=== PATIENT | male | born 1995 ===

== ENCOUNTER 2023-12-26 15:38 | Outpatient (RCR) | payer OTHER, SELFPAY ==
--- NOTE | 2023-12-26 16:00 | PT.OPPOC ---
Physical, Occupational & Speech Therapy At [facility] Current Diagnoses Dizziness and giddiness (12/26/23) Visit Care Team Role Provider Type Ying Moody DO Attending Provider Non-Staff Primary Care Provider Referring Provider Specialty: Medical Address: [address] [place] [address], [phone] Fax: Email: Plan Of Care PT-OP-T Assessment and Plan Start: 12/26/23 16:40 Freq: Status: Active Protocol: Document 12/26/23 16:00 DCW (Rec: 12/27/23 08:51 DCW [id number]) Physical Therapy Assessment Rehab Potential Rehabilitation Potential Excellent Evaluation Complexity Number of Personal Factors/Comorbidities 0 Number of Body Systems Impaired 1-2 Clinical Presentation at Evaluation Stable Impairments Impairments Balance,Functional Activities, Functional Mobility,Vestibular Goals One Impairment Prior sensations of dizziness and imbalance [employer] Goal (LTG) Pt to report no symptoms of dizziness or imbalance for two full weeks LTG Duration 01/25/24 Assessment Summary Assessment Pt vestibular testing entirely negative today. Pt subjective history (up until earlier this week when symptoms resolved) is not particularly suggestive of a specific vestibular disorder. Referral does note at one point pt had a positive Hallpike, and pt reports a CRM was performed. Since pt is now no longer symptomatic, this itself is highly suggestive of likely BPPV, subjective symptoms may just indicate atypical presentation. Other possible DDx would be Vertiginous Migraine, due to pt migraine history, however would be very unlikely based on length of time episode lasted. Due to pt being asymptomatic currently, difficult to make any accurate vestibular treatment plan or suggestion at this time. Did discuss/educate pt on BPPV, expectations for treatment, and possible recurrence (BPPV has a ~50% recurrence rate in the five years following treatment). Therapist suggested that since resolution of symptoms was very recent, to schedule follow-up withing the next 1-2 weeks just in case symptoms return. Pt agreeable to this plan, and understands that if symptoms do not return, he will likely just cancel upcoming appointment. Physical Therapy Plan Frequency and Duration Frequency of Treatment Every Other Week Plan of Care Start Date 12/26/23 Plan of Care End Date 01/25/24 Therapeutic Interventions Therapeutic Interventions Balance Training,Canalithic Repositioning,Manual Therapy, Neuromuscular Re-education, Therapeutic Activities, Therapeutic Exercises, Vestibular Rehabilitation Next Visit Focus/Plan Next Note Type Treatment Note Next Visit Plan Further vestibular testing as needed, per subjective reports of symptoms Plan of Care Dates Plan of Care Start Date 12/26/23 Plan of Care End Date 01/25/24 Electronically Signed by: Ruddy Gongora, PT 12/27/23 0852 If you are in agreement with this Plan of Care, please return a signed and dated copy. I have reviewed this Plan of Care and certify that the skilled therapy services above are required to meet the patient?s needs. Physician Signature Date Printed Name and Credentials Clinical Instructor Signature Printed Name and Credentials
--- NOTE | 2023-12-26 16:45 | PT.OIE ---
Current Diagnoses Dizziness and giddiness (12/26/23) Visit Care Team Role Provider Type Ying Moody DO Attending Provider Non-Staff Primary Care Provider Referring Provider Specialty: Medical Address: [address] [place] [address], [phone] Fax: Email: Physical Therapy Initial Evaluation PT-OP-A Visit Information Start: 12/26/23 16:40 Freq: Status: Active Protocol: Document 12/26/23 16:00 DCW (Rec: 12/26/23 16:42 DCW [id number]) Out-Patient Physical Therapy Visit Information Visit Information Visit Type Initial Evaluation Visit Start Time 16:00 Visit Stop Time 16:40 Visit Number 1 Number of SECOND RIGGER Visits 0 Evaluation Information Evaluation Date 12/26/23 PT-OP-B Current Condition Start: 12/26/23 16:40 Freq: Status: Active Protocol: Document 12/26/23 16:00 DCW (Rec: 12/27/23 08:51 DCW [id number]) Current Condition History of Current Condition Onset Date 11/04/23 Current Complaints Imbalance, dizziness History of Current Condition Pt is a 28 year old male presenting with a 1.5 month history of difficult to define complaints of dizziness and imbalance. 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 Feelings of imbalance lasted for 30-40 minutes at a time, worse when up moving around, was able to get symptoms to reduce by laying down. Pt reports that when they started, he was a week from returning from assignment, so he just put up with it until he got back, because it'd be easier to get seen by his PCP. Has had a lot of testing performed, MRI WNL , audiogram was WNL, appears so far, no one has largely been able to find any cause, however per pt, he did have a positive Hallpike in his PCP's office, and then what sounds like an Lucille maneuver was performed. Pt reports at the time it didn't help, however symptoms have recently gone away (within the past 4-5 days ). and he admits he basically feels fine now. Treatment Goals Patient/Caregiver Goals Hoping to determine cause of epuisodes of dizziness, and ways to prevent it from recurring. PT-OP-C Subjective Start: 12/26/23 16:40 Freq: Status: Active Protocol: Document 12/26/23 16:00 DCW (Rec: 12/26/23 16:42 DCW [id number]) OP-PT Subjective Patient Comments Patient Comments It's been completely gone now for the past few days. Patient Reported Progress Improving Patient Questionnaires Dizziness Handicap Inventory DHI Score 36% PT-OP-O Vestibular Start: 12/26/23 16:40 Freq: Status: Active Protocol: Document 12/26/23 16:00 DCW (Rec: 12/27/23 08:51 DCW [id number]) Vestibular Assessment Auditory Tests Briggs Test Within normal limits Rinne Test Negative Air Conduction Results Equal Visual Testing Smooth Pursuits Horizontal WNL Smooth Pursuits Vertical WNL Saccades Horizontal WNL Saccades Vertical WNL Heave Test Negative Thrust Head Negative DVA (Line Degradation) 2 Positional Testing [place]-Hallpike Negative Left,Negative Right Rolling Test Negative Left,Negative Right PT-OP-Q Treatments Start: 12/26/23 16:40 Freq: Status: Active Protocol: Document 12/26/23 16:00 DCW (Rec: 12/26/23 16:43 DCW [id number]) Self-Care/Home Management Treatment Education Other Education Education on Inner Ear/ Vestibular A&P, potential causes of symptoms, expectations for treatment PT-OP-T Assessment and Plan Start: 12/26/23 16:40 Freq: Status: Active Protocol: Document 12/26/23 16:00 DCW (Rec: 12/27/23 08:51 DCW [id number]) Physical Therapy Assessment Rehab Potential Rehabilitation Potential Excellent Evaluation Complexity Number of Personal Factors/Comorbidities 0 Number of Body Systems Impaired 1-2 Clinical Presentation at Evaluation Stable Impairments Impairments Balance,Functional Activities, Functional Mobility,Vestibular Goals One Impairment Prior sensations of dizziness and imbalance Group Home Goal (LTG) Pt to report no symptoms of dizziness or imbalance for two full weeks LTG Duration 01/25/24 Assessment Summary Assessment Pt vestibular testing entirely negative today. Pt subjective history (up until earlier this week when symptoms resolved) is not particularly suggestive of a specific vestibular disorder. Referral does note at one point pt had a positive Hallpike, and pt reports a CRM was performed. Since pt is now no longer symptomatic, this itself is highly suggestive of likely BPPV, subjective symptoms may just indicate atypical presentation. Other possible DDx would be Vertiginous Migraine, due to pt migraine history, however would be very unlikely based on length of time episode lasted. Due to pt being asymptomatic currently, difficult to make any accurate vestibular treatment plan or suggestion at this time. Did discuss/educate pt on BPPV, expectations for treatment, and possible recurrence (BPPV has a ~50% recurrence rate in the five years following treatment). Therapist suggested that since resolution of symptoms was very recent, to schedule follow-up withing the next 1-2 weeks just in case symptoms return. Pt agreeable to this plan, and understands that if symptoms do not return, he will likely just cancel upcoming appointment. Physical Therapy Plan Frequency and Duration Frequency of Treatment Every Other Week Plan of Care Start Date 12/26/23 Plan of Care End Date 01/25/24 Therapeutic Interventions Therapeutic Interventions Balance Training,Canalithic Repositioning,Manual Therapy, Neuromuscular Re-education, Therapeutic Activities, Therapeutic Exercises, Vestibular Rehabilitation Next Visit Focus/Plan Next Note Type Treatment Note Next Visit Plan Further vestibular testing as needed, per subjective reports of symptoms
--- NOTE | 2024-06-19 12:43 | PT.OPDS ---
Current Diagnoses Dizziness and giddiness (12/26/23) Visit Care Team Role Provider Type Ying Moody DO Attending Provider Non-Staff Primary Care Provider Referring Provider Specialty: Medical Address: [address] [place] [address], [phone] Email: Visit Number Visit Number 1 Discharge Summary PT-OP-B Current Condition Start: 12/26/23 16:40 Freq: Status: Active Protocol: Document 12/26/23 16:00 DCW (Rec: 12/27/23 08:51 DCW [id number]) Current Condition History of Current Condition Onset Date 11/04/23 Current Complaints Imbalance, dizziness History of Current Condition Pt is a 28 year old male presenting with a 1.5 month history of difficult to define complaints of dizziness and imbalance. 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 Feelings of imbalance lasted for 30-40 minutes at a time, worse when up moving around, was able to get symptoms to reduce by laying down. Pt reports that when they started, he was a week from returning from assignment, so he just put up with it until he got back, because it'd be easier to get seen by his PCP. Has had a lot of testing performed, MRI WNL , audiogram was WNL, appears so far, no one has largely been able to find any cause, however per pt, he did have a positive Hallpike in his PCP's office, and then what sounds like an Lucille maneuver was performed. Pt reports at the time it didn't help, however symptoms have recently gone away (within the past 4-5 days ). and he admits he basically feels fine now. Treatment Goals Patient/Caregiver Goals Hoping to determine cause of episodes of dizziness, and ways to prevent it from recurring. PT-OP-C Subjective Start: 12/26/23 16:40 Freq: Status: Active Protocol: Document 12/26/23 16:00 DCW (Rec: 12/26/23 16:42 DCW [id number]) OP-PT Subjective Patient Comments Patient Comments It's been completely gone now for the past few days. Patient Reported Progress Improving Patient Questionnaires Dizziness Handicap Inventory DHI Score 36% PT-OP-O Vestibular Start: 12/26/23 16:40 Freq: Status: Active Protocol: Document 12/26/23 16:00 DCW (Rec: 12/27/23 08:51 DCW [id number]) Vestibular Assessment Auditory Tests Briggs Test Within normal limits Rinne Test Negative Air Conduction Results Equal Visual Testing Smooth Pursuits Horizontal WNL Smooth Pursuits Vertical WNL Saccades Horizontal WNL Saccades Vertical WNL Heave Test Negative Thrust Head Negative DVA (Line Degradation) 2 Positional Testing [place]-Hallpike Negative Left,Negative Right Rolling Test Negative Left,Negative Right PT-OP-T Assessment and Plan Start: 12/26/23 16:40 Freq: Status: Active Protocol: Document 06/19/24 12:42 DCW (Rec: 06/19/24 12:43 DCW [id number]) Physical Therapy Assessment Assessment Summary Assessment Pt has not been seen in more than five months, and does not have any further follow-up visits scheduled. Pt will be discharged from skilled PT at this time, and will require a new referral in order to return in the future. Physical Therapy Plan Discharge Physical Therapy Discharge Reasons No Longer Attending PT Next Visit Focus/Plan Next Note Type Discharge Summary
== END 2024-06-25 14:54 | disposition home or self-care (01) ==
LOC: PHYS 15:38
PROVIDERS: PCP Preventive Medicine Aerospace Medicine; Referring Provider Preventive Medicine Aerospace Medicine; Visit Provider Preventive Medicine Aerospace Medicine
DX: R42 Dizziness and giddiness (principal)
CPT/HCPCS: 97161; 97535